=== PATIENT | female | born 1985 ===

== ENCOUNTER 2019-01-27 11:38 | Emergency (ER) | payer OTHER ==
[~2019-01-27] VITALS: Ht 157.5 cm; Wt 68.0 kg
[~2019-01-27 11:38] MED LIST: APRESOLINE 10MG10 MG PO; ATENOLOL100 MG PO; BUCALSEP SPRAY30 ML MM; CAPOTEN100 MG PO; CELLCEPT250 MG PO; COZAAR100 MG; LASIX40 MG PO; PREDNISONE20 MG PO; PROVENTIL3 ML/2.5 M IH; ZYNCOF 20-400120 ML PO
[2019-01-27] MEDS ORDERED: MILLIPRED5 MG PO (12:13)
[2019-01-27] MEDS ORDERED: CELLCEPT500 MG PO (12:13)
[2019-01-27] MEDS ORDERED: COZAAR100 MG PO (12:13)
[2019-01-27] MEDS ORDERED: HYDRALAZINE HCL25 MG PO (12:14)
[2019-01-27] MEDS ORDERED: [UNRECOGNIZED DRUG - OTHER] PO (12:15)
== END 2019-01-27 15:00 | disposition home or self-care (01) ==
LOC: ER 11:38
DX: N39.0 Urinary tract infection, site not specified (principal)

== ENCOUNTER 2020-02-14 22:40 | Emergency (ER) | payer OTHER ==
[~2020-02-14] VITALS: Ht 157.5 cm; Wt 67.1 kg
[~2020-02-14 22:40] MED LIST changes: +CELLCEPT500 MG PO; +COZAAR100 MG PO; +HYDRALAZINE HCL25 MG PO; +MILLIPRED5 MG PO; +[UNRECOGNIZED DRUG - OTHER] PO
[2020-02-15] MEDS ORDERED: CIPRO500 MG PO (02:37)
== END 2020-02-15 02:45 | disposition home or self-care (01) ==
LOC: ER 22:40 → EDBD 22:55 → ER 22:55
DX: R31.0 Gross hematuria (principal)

== ENCOUNTER 2021-01-20 20:02 | Emergency (ER) | payer OTHER ==
[~2021-01-20] VITALS: Ht 160 cm; Wt 72.6 kg
[~2021-01-20 20:02] MED LIST changes: +CIPRO500 MG PO
[2021-01-21] MEDS ORDERED: ONDANSETRON ODT4 MG PO (00:49)
[2021-01-21] MEDS ORDERED: PEPCID AC20 MG PO (00:49)
== END 2021-01-21 00:56 ==
LOC: ER 20:02
DX: R07.89 Other chest pain (principal)

== ENCOUNTER 2021-01-24 12:31 | Emergency (ER) | payer OTHER ==
[~2021-01-24] VITALS: Ht 157.5 cm; Wt 68.0 kg
[~2021-01-24 12:31] MED LIST changes: +ONDANSETRON ODT4 MG PO; +PEPCID AC20 MG PO
[2021-01-24] MEDS ORDERED: LABETALOL 11 MG/1 ML IV (12:51)
== END 2021-01-24 15:53 | disposition home or self-care (01) ==
LOC: ER 12:31
DX: R51.9 Headache, unspecified (principal); Z03.818 Encounter for observation for suspected exposure to other biological agents ruled out; I10 Essential (primary) hypertension

== ENCOUNTER 2021-01-27 13:00 | Outpatient (CLI) | payer OTHER ==
[~2021-01-27 13:00] MED LIST changes: +LABETALOL 11 MG/1 ML IV
== END 2021-01-27 13:11 | disposition home or self-care (01) ==
LOC: MRI 13:00
PROVIDERS: ATTEND Internal Medicine Rheumatology
DX: G93.89 Other specified disorders of brain (principal); I10 Essential (primary) hypertension; M32.14 Glomerular disease in systemic lupus erythematosus
CPT/HCPCS: 70551

== ENCOUNTER 2021-08-21 14:34 | Emergency (ER) | payer OTHER ==
[~2021-08-21] VITALS: Ht 170.2 cm; Wt 77.1 kg
[2021-08-21] MEDS ORDERED: TAMS0.4C PO (23:43)
== END 2021-08-22 00:10 | disposition home or self-care (01) ==
LOC: ER 14:34
DX: R10.31 Right lower quadrant pain (principal); N20.0 Calculus of kidney; R50.9 Fever, unspecified; Z88.2 Allergy status to sulfonamides; I10 Essential (primary) hypertension

== ENCOUNTER 2024-02-21 07:12 | Outpatient (CLI) | payer OTHER ==
[~2024-02-21 07:12] MED LIST changes: +TAMS0.4C PO
[2024-02-21 08:30] LABS: ALBUMIN 3.2 gm/dL (3.4-5.0); CALCIUM 8.7 mg/dL (8.5-10.1); CREATININE SERUM 1.03 mg/dL (0.55-1.02); GFR 59.97; PHOSPHOROUS 3.6 mg/dL (2.5-4.9); POTASSIUM 4.34 mEq/L (3.5-5.1)
== END 2024-02-21 07:19 | disposition home or self-care (01) ==
LOC: LAB 07:12
PROVIDERS: ATTEND Specialist
DX: M32.14 Glomerular disease in systemic lupus erythematosus (principal); N18.2 Chronic kidney disease, stage 2 (mild)

== ENCOUNTER 2024-02-21 07:59 | Outpatient (CLI) | payer OTHER | END 2024-02-21 08:06 | disposition home or self-care (01) | LOC: TOM 07:59 | PROVIDERS: ATTEND Specialist | DX: N28.1 Cyst of kidney, acquired (principal) ==